=== PATIENT | female | born 1950 | race Caucasian/White ===

== ENCOUNTER → 2020-07-18 | Outpatient (CLI) | payer MEDICARE ==
[~2020-07-18] MED LIST: ATOR20TA58 PO; HYDR12.58 PO; LEVO100T5 PO; LOSA25TA11 PO
== END ==
LOC: LAB 13:28
PROVIDERS: ATTEND Nurse Anesthetist, Certified Registered
DX: Z01.812 Encounter for preprocedural laboratory examination (principal); Z20.828 Contact with and (suspected) exposure to other viral communicable diseases
CPT/HCPCS: U0003

== ENCOUNTER → 2020-07-21 | Day surgery (SDC) | payer MEDICARE ==
[~2020-07-21] MED LIST changes: +IPRATRPIUM/ALBUTEROL 0.5/2.5MG 3 ML NEBU. NEB PRN; +IV RINGERS SOLUTION,LACTATED 1,000 ML IV SCH; +MIDAZOLAM HCL PF 2 MG/2 ML VIAL. IV ONE; +ONDANSETRON PF 4 MG/2 ML VIAL. IV PRN; +PROPOFOL 10,000 MCG/ML (20ML) VIAL IV ONE
[2020-07-21 12:35] VITALS: BP 116/78
--- NOTE | 2020-07-26 15:08 | PATHOLOGY ---
[facility] Accession Number: [id number] . 01 Material submitted: . PART A: stomach - ANTRUM GASTRITIS PART B: colon - DESCENDNIG COLON POLYP. Modifiers: descending PART C: cecum - CECUM POLYP PART D: colon - DESCENDING COLON #2. Modifiers: descending, 2 . 02 Diagnosis: A. Gastric biopsies, antrum: - Chronic gastritis, mild. . B. Colon biopsies, descending colon polyps: - Hyperplastic polyps. . C. Colon biopsies, cecal polyp: - Tubular adenoma. . D. Colon biopsies, descending colon polyp #2: - Tubular adenoma. . (TOÑAM:ozzy; 07/26/2020) [facility] 07/26/2020 1044 Local . 02 Comment: Sections of the gastric biopsy reveal segments of gastric antral and antral/body transition mucosa showing congestion and patchy mild chronic inflammation. A properly controlled immunoperoxidase stain for Helicobacter is negative for Helicobacter organisms. . Sections of the descending colon polyps biopsy (specimen B) reveal small hyperplastic polyps showing no adenomatous changes or evidence of malignancy. . Sections of the cecal polyp biopsy reveal a tubular adenoma showing no high-grade dysplasia or evidence of malignancy. . Sections of the descending colon polyp #2 biopsy reveal a tubular adenoma showing no high-grade dysplasia or evidence of malignancy. . (JPM:ozzy; 07/26/2020) . . Special stain performed: Immunoperoxidase stain for Helicobacter on A1 . 02 Electronically signed: . Karl Gates MD, Pathologist NPI- [id number] . 01 Gross description: . A. The specimen is received in formalin, labeled "Stephon, Isaak, antrum gastritis" and consists of 2 fragments of pink-tay tissue measuring 0.3 x 0.3 cm each which are entirely submitted in A1. . B. The specimen is received in formalin, labeled "Stephon, Isaak, descending colon polyp" and consists of 2 fragments of pink-tay tissue measuring 0.3 x 0.2 cm and 0.5 x 0.3 cm which are entirely submitted in B1. . C. The specimen is received in formalin, labeled "Stephon, Isaak, cecum polyp" and consists of 3 fragments of pink-tay tissue measuring between 0.2 x 0.2 cm and 0.4 x 0.3 cm which are entirely submitted in C1. . D. The specimen is received in formalin, labeled "Stephon, Isaak, descending colon 2" and consists of multiple fragments of tay tissue measuring 1.6 x 0.5 x 0.4 cm in aggregate which are entirely submitted in D1. (SDY; 07/25/2020) SYU/SYU 07/25/2020 1251 Local . 02 Pathologist provided ICD-10: K29.50, K63.5, D12.0, D12.4 . 02 CPT . 257100, 214505, 186550, 171978, [id number] Specimen Comment: A courtesy copy of this report has been sent to [phone], [phone] Specimen Comment: [id number] Specimen Comment: Report sent to / DR SONG Performed at: [facility] [address], [place] [id number] MD Scot Watters MD Phone: [phone] Performed at: 02 [facility] [address], [place] [id number] MD Karl Gates MD Phone: [phone]
== END | disposition home or self-care (01) ==
LOC: EDSEX → SURG 10:18
PROVIDERS: ATTEND Internal Medicine Gastroenterology
DX: R19.5 Other fecal abnormalities (principal); D12.4 Benign neoplasm of descending colon; D12.0 Benign neoplasm of cecum; K63.89 Other specified diseases of intestine; K31.89 Other diseases of stomach and duodenum; K64.0 First degree hemorrhoids; K57.30 Diverticulosis of large intestine without perforation or abscess without bleeding; K29.50 Unspecified chronic gastritis without bleeding; K21.00 Gastro-esophageal reflux disease with esophagitis, without bleeding; I10 Essential (primary) hypertension; K76.0 Fatty (change of) liver, not elsewhere classified; J45.909 Unspecified asthma, uncomplicated; E78.00 Pure hypercholesterolemia, unspecified; E03.9 Hypothyroidism, unspecified; Z79.899 Other long term (current) drug therapy; Z98.890 Other specified postprocedural states; Z88.1 Allergy status to other antibiotic agents
CPT/HCPCS: 43239; 45380; 45381; 45385; 88305; 88342; J2704; J7120